=== PATIENT | male | born 1935 | race Caucasian/White ===

== ENCOUNTER 2016-08-07 22:54 | Inpatient (IN) | payer OTHER, BC ==
[~2016-08-07] VITALS: Ht 175.3 cm; Wt 105.2 kg
[~2016-08-07 22:54] MED LIST: LISIPOW; TOPROL
[2016-08-08] VITALS (10 sets, daily range): BP systolic 109–185; BP diastolic 68–107; PULSE 64–84; TEMP 36.6–36.8; O2SAT 82–97; Ht 175.3 cm; Wt 105.2 kg
[2016-08-08] MEDS ORDERED: LSX80 (04:06)
[2016-08-08] MEDS ORDERED: POTA10CA28 PO (04:07)
[2016-08-08] MEDS ORDERED: ZNTT/150 PO (04:07)
[2016-08-08] MEDS ORDERED: SIMV10TA2 PO (04:10)
[2016-08-08] MEDS ORDERED: METO50TA16 PO (04:11)
[2016-08-08] MEDS ORDERED: ISOS120T5 PO (04:12)
[2016-08-08] MEDS ORDERED: TRAM-10 PO (04:12)
[2016-08-08] MEDS ORDERED: FURO80TA63 PO (04:14)
[2016-08-08] MEDS ORDERED: POLYETHYLENE (MIRALAX) 17 GM PACK PO PRN (05:00)
[2016-08-08] MEDS ORDERED: ONDANSETRON INJ 2 MG/ML 2 ML VIAL IV PRN (05:00)
--- NOTE | 2016-08-08 05:09 | History and Physical ---
History & Physical Date & Time of Service: Aug 08, 2016 at 05:09 Chief Complaint: Rt Kidney Stone, Hydronephritis, Thrombocytopenia Primary Care Physician: No Doctor, Assigned History of Present Illness Source: patient 80-year-old male with a past medical history of coronary artery disease, aortic stenosis, hypertension, status post bilateral knee replacement, ITP status post splenectomy presented as a direct admit from [facility] with complaints of right-sided flank pain. The patient complained of right-sided flank pain which started yesterday afternoon and seemed to get progressively worse. He rates the pain as 7/10. Worse on moving. Denies any nausea or vomiting, diarrhea or constipation. Denies any dysuria, increased frequency, hematuria. Denied any fevers with chills. UA done at outside hospital revealed 3+ blood and CT abdomen and pelvis revealed mild right-sided hydronephrosis with proximal right hydroureter with 0.6 x0.4x 0.5 ureteral calculus . Past Medical/Surgical History Coronary artery disease, ITP status post colectomy, bilateral knee arthroplasty , hypertension, bowel obstruction, aortic stenosis Social History Smoking Status: Never Smoker Immunizations History of Influenza Vaccine: Yes History of Tetanus Vaccine?: Yes History of Pneumococcal: HAD REACTION TO VACCINE History of Hepatitis B Vaccine: No Allergies Coded Allergies: Diazepam (Verified Allergy, Mild, RASH, 08/08/16) Home Medications Scheduled Furosemide (Lasix), 1 TAB PO DAILY Isosorbide Mononitrate Ext Rel (Imdur Ext Rel), 120 MG PO DAILY Metoprolol Tartrate (Lopressor) (Lopressor), 1 TAB PO BID Potassium Chloride (Micro-K Ext Rel), 10 MEQ PO DAILY Ranitidine (Zantac), 1 TAB PO BID Simvastatin (Zocor), 1 TAB PO Q2D Scheduled PRN Tramadol (Ultram), 1 TAB PO BID PRN for Pain Review of Systems Constitutional: No fever, No chills Eyes: No worsening of vision ENT: No hearing loss Respiratory: No cough, No sputum, No shortness of breath Cardiovascular: No chest pain Abdomen: + pain (right-sided flank pain), No nausea, No vomiting, No diarrhea, No GI bleeding Musculoskeletal: No joint pain Genitourinary - Male: No hematuria, No dysuria, No urinary frequency Neurologic: No memory loss, No paralysis Psychiatric: No depression symptoms Endocrine: No fatigue Hematologic / Lymphatic: + problem reported (thrombocytopenia) Integumentary: No rash Physical Exam Vital Signs Date Time Temp Pulse Resp B/P (MAP) Pulse Ox O2 Delivery O2 Flow Rate FiO2 08/08/16 04:38 74 136/81 (99) 08/08/16 03:20 Room Air 08/08/16 03:20 36.8 75 16 185/107 95 Room Air General Appearance: WD/WN, + mild distress Head: normocephalic Eyes: normal inspection ENT: normal ENT inspection, hearing grossly normal Neck: supple Respiratory/Chest: chest non-tender, lungs clear, normal breath sounds, no respiratory distress Cardiovascular: regular rate, rhythm, + systolic murmur Abdomen/GI: normal bowel sounds, non tender, soft Back: + right CVA tenderness, + pertinent finding (several Seborrheic keratosis on the back) Extremities/Musculoskelatal: no pedal edema Neurologic/Psych: alert, normal mood/affect, oriented x 3 Skin: normal color Diagnostics Laboratory Results Results Past 24 Hours Test 08/08/16 04:57 Range/Units Diagnostic Radiology CT abdomen and pelvis done at outside hospital: Mild right hydronephrosis and proximal right hydroureter related to 0.6 X o.4 x 0.5 70 proximal ureteral calculus. Also noted a nonobstructing left lower pole renal calculus. Other findings include cystic foci in both kidneys many with characteristics appearing symmetrical and proteinaceous. 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 Bilateral inguinal hernia and very small fat-containing umbilical hernia Impression Assessment and Plan 80-year-old male with a past medical history of coronary artery disease, aortic stenosis, hypertension, status post bilateral knee replacement, ITP status post splenectomy presented as a direct admit from [facility] with complaints of right-sided flank pain. 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 Y/N: Yes Risk Level: Moderate Given or contraindicated: SCD's Resident Tracking Resident Involvement: Resident Care Provided Care Provided: Adult Hospital Medicine Assessment and Plan Attending Addendum: I have physically seen and examined this patient, have directed their medical care, have supervised the medical residents activities, and agree with the H&P as noted above, with the following changes: NONE
[2016-08-08] MEDS ORDERED: HYDROmorphone INJ 1 MG/ML SYR IV PRN (05:15)
[2016-08-08] MEDS ORDERED: MoRPHine SULFATE 4 MG/ML 1 ML CARP\\VIAL IV PRN (05:15)
[2016-08-08] MEDS: TAMSULOSIN HCL 0.4 MG CAP PO STA ×2 (05:23→06:00)
[2016-08-08] MEDS: SODIUM CHLORIDE 0.9% 1000ML 1,000 ML IV SCH ×2 (06:01→15:54)
[2016-08-08 06:55] LABS: HEMATOCRIT 51.1 % (42-52); MEAN CORPUSCULAR HEMOGLOBIN 31.2 pg (25-34); MEAN CORPUSCULAR HGB CONC 32.9 g/dl (32-36); PLATELET COUNT 35 K/uL (130-400); RED BLOOD COUNT 5.38 M/uL (4.7-6.1); WHITE BLOOD COUNT 11.98 K/uL (4.8-10.8)
[2016-08-08 07:05] LABS: BUN/CREATININE RATIO 19.5 (10-20); CALCIUM 8.8 mg/dl (8.5-10.1); CREATININE 0.9 mg/dl (0.60-1.40); POTASSIUM 4.4 mmol/L (3.5-5.1)
--- NOTE | 2016-08-08 07:14 | Urology Consultation ---
History General Date of Service: Aug 08, 2016. Chief Complaint: right flank pain Primary Care Physician: No Doctor, Assigned Pt seen a urologist before?: No History of Present Illness 80 yo male presented transferred from [facility] for a 6mm proximal right ureteral stone found on CT scan. The pt reports developing right flank pain yesterday around 1700. Denies any f/c, n/v, dysuria, or hematuria with the pain. He has no previous hx of stones. He is currently afebrile. White count is 11.98. Cr is 0.90. Imaging Imaging: CT ([facility] showing proximal right ureteral stone) Laboratory Last 24 Hours Test 08/08/16 04:57 08/08/16 06:05 White Blood Count 11.98 K/uL Red Blood Count 5.38 M/uL Hemoglobin 16.8 g/dL Hematocrit 51.1 % Mean Corpuscular Volume 95.0 fL Mean Corpuscular Hemoglobin 31.2 pg Mean Corpuscular Hemoglobin Concent 32.9 g/dl Platelet Count 35 K/uL RDW Standard Deviation 50.3 fL RDW Coefficient of Variation 14.5 % Past History coronary artery disease, hypertension, other (aortic stenosis, ITP s/p colectomy ) Past Surgical History: colectomy, TKR (bilateral ) Family History non-contributory Social History Smoking: non-smoker Occupation status: retired Immunizations History of Influenza Vaccine: Yes History of Tetanus Vaccine?: Yes History of Pneumococcal: HAD REACTION TO VACCINE History of Hepatitis B Vaccine: No Allergies Coded Allergies: No Known Allergies (Verified Allergy, Unknown, 11/14/06) Medications Home Medications: Home Meds and Scripts Medications Dose Route/Sig Max Daily Dose Days Date Category Lasix (Furosemide) 80 Mg Tab 1 Tab PO DAILY 30 08/08/16 Reported Ultram (Tramadol HCl) 50 Mg Tab 1 Tab PO BID PRN 30 08/08/16 Reported Imdur Ext Rel (Isosorbide Mononitrate) 120 Mg Ertab 120 Mg PO DAILY 08/08/16 Reported Lopressor (Metoprolol Tartrate) 50 Mg Tab 1 Tab PO BID 90 08/08/16 Reported Zocor (Simvastatin) 10 Mg Tab 1 Tab PO Q2D 90 08/08/16 Reported Zantac (Ranitidine HCl) 150 Mg Tab 1 Tab PO BID 30 08/08/16 Reported Micro-K Ext Rel (Potassium Chloride) 10 Meq Capcr 10 Meq PO DAILY 08/08/16 Reported Inpatient Medications: Current Inpatient Medications Medications (Trade) Dose Ordered Sig/Brian Route Start Time Stop Time Status Last Admin Dose Admin Polyethylene (Miralax Powder Packet) 17 gm DAILY PRN PO 08/08/16 05:00 09/07/16 04:59 Ondansetron HCl (Zofran Inj) 4 mg Q6H PRN IV 08/08/16 05:00 09/07/16 04:59 Furosemide (Lasix Tab) 80 mg DAILY PO 08/08/16 09:00 09/07/16 08:59 Isosorbide Mononitrate (Imdur Ext Rel Tab) 120 mg DAILY PO 08/08/16 09:00 09/07/16 08:59 Metoprolol Tartrate (Lopressor Tab) 50 mg BID PO 08/08/16 09:00 09/07/16 08:59 Potassium Chloride (Klor-Con M10) 10 meq DAILY PO 08/08/16 09:00 09/07/16 08:59 Ranitidine HCl (zANTac TAB) 150 mg BID PO 08/08/16 09:00 09/07/16 08:59 Simvastatin (Zocor Tab) 10 mg Q2D PO 08/08/16 21:00 09/07/16 20:59 Tramadol HCl (Ultram Tab) 50 mg BID PRN PO 08/08/16 05:00 09/07/16 04:59 Morphine Sulfate (MoRPHine SULFATE INJ) 4 mg Q3H PRN IV 08/08/16 05:15 08/22/16 05:14 Hydromorphone HCl (Dilaudid Inj) 1 mg Q3H PRN IV 08/08/16 05:15 08/22/16 05:14 Ceftriaxone Sodium 1 gm/ Dextrose 50 ml @ 100 mls/hr Q24H IV 08/08/16 09:00 08/18/16 08:59 Tamsulosin HCl (Flomax Cap) 0.4 mg HS PO 08/08/16 21:00 09/07/16 20:59 Sodium Chloride 1,000 ml @ 100 mls/hr Q10H IV 08/08/16 05:45 09/07/16 05:44 08/08/16 06:01 100 MLS/HR Review of Systems Review of Systems Constitutional: No fever, No chills Eyes: No double vision Neurological: No dizzy Endocrine: No excessive thirst Gastrointestinal: + abdominal pain (right flank ), No nausea, No vomiting Cardiovascular: No chest pain Respiratory: No shortness of breath Skin: No rash Musculoskeletal: + back pain (right low back ) Male : No painful urination, No blood in urine Physical Exam Vital Signs: Vital Signs Past 12 Hours Date Time Temp Pulse Resp B/P (MAP) Pulse Ox O2 Delivery O2 Flow Rate FiO2 08/08/16 04:38 74 136/81 (99) 08/08/16 03:20 Room Air 08/08/16 03:20 36.8 75 16 185/107 95 Room Air Physical Exam: General Appearance: no apparent distress Eyes: bilateral eyes normal inspection ENT: hearing grossly normal Neck: no JVD Respiratory/Chest: no respiratory distress, no accessory muscle use Cardiovascular: no JVD Extremities: normal inspection Neurologic/Psychiatric: alert, normal mood/affect, oriented x 3 Skin: normal color Assessment & Plan Assessment & Plan A/P: Proximal right ureteral stone AFVSS. Tx options discussed with the pt today have included a trial of passage with MET vs right ureteral stent placement. The pt prefers a trial of passage today. No evidence of sepsis. Would need urgent stent placement in the event he develops a fever. Recommend supportive management with IVF, Flomax, and pain control. Strain all urine. Will provide a diet today and make him NPO after midnight in the event he needs stent placement tomorrow. Labs and KUB in AM. Thanks for the consult. Will continue to follow along with primary service at this time.
--- NOTE | 2016-08-08 07:30 | Hospitalist Progress Note ---
Hospitalist Progress Note Date of Service Aug 08, 2016. (Mercedes Rust PA-C) Subjective Pt evaluation today including: conversation w/ patient, physical exam, chart review, lab review, review of studies Pain: Moderate, 6/10 PO Intake: Fair Voiding: no voiding problems The patient was seen and examined this morning. Pt reports doing ok, he is still having moderate pain in the right flank/posterior low back region. Pain is improved with pain medication but he is asking for a dose if possible. He is urinating without difficulty. To his knowledge he has not seen any stones as urine was strained. When discussing his platelet count he reports that 35 is actually good for him. He denies abdominal pain, n/v/d/c, cp, sob. Constitutional: No fever, No chills, No sweats, No fatigue Eyes: No discharge, No diplopia ENT: No sore throat, No trouble swallowing Respiratory: No cough, No wheezing, No shortness of breath Cardiovascular: No chest pain, No palpitations Abdomen: No pain, No nausea, No vomiting, No diarrhea, No constipation Musculoskeletal: No joint pain, No muscle pain, No swelling Male : No dysuria, No slowing stream, No hematuria Neurologic: No weakness, No numbness/tingling Skin: No rash, No itch (Mercedes Rust PA-C) Objective Vital Signs Date Time Temp Pulse Resp B/P (MAP) Pulse Ox O2 Delivery O2 Flow Rate FiO2 08/08/16 04:38 74 136/81 (99) 08/08/16 03:20 Room Air 08/08/16 03:20 36.8 75 16 185/107 95 Room Air (Mercedes Rust PA-C) Physical Exam General Appearance: WD/WN, no apparent distress Eyes: PERRL, EOMI ENT: hearing grossly normal, pharynx normal Neck: supple, no JVD Respiratory/Chest: chest non-tender, lungs clear, no respiratory distress, no accessory muscle use Cardiovascular: regular rate, rhythm, no JVD, + systolic murmur (grade III/, heard best at LSB 5th ICS) Abdomen: normal bowel sounds, non tender, soft, + pertinent finding (+ CVA tenderness over R flank) Extremities: non-tender, no pedal edema, no calf tenderness Neurologic/Psychiatric: alert, normal mood/affect, oriented x 3 Skin: + pertinent finding (many seborrheic keratosis overlying entire body, concentrated on back, chest and head. ) (Mercedes Rust, MANNY) Laboratory Results Last 24 Hours Test 08/08/16 04:57 08/08/16 06:05 White Blood Count 11.98 K/uL Red Blood Count 5.38 M/uL Hemoglobin 16.8 g/dL Hematocrit 51.1 % Mean Corpuscular Volume 95.0 fL Mean Corpuscular Hemoglobin 31.2 pg Mean Corpuscular Hemoglobin Concent 32.9 g/dl Platelet Count 35 K/uL RDW Standard Deviation 50.3 fL RDW Coefficient of Variation 14.5 % Sodium Level 144 mmol/L Potassium Level 4.4 mmol/L Chloride Level 108 mmol/L Carbon Dioxide Level 29 mmol/L Anion Gap 7.0 mmol/L Blood Urea Nitrogen 18 mg/dl Creatinine 0.90 mg/dl Est Creatinine Clear Calc Drug Dose 77.0 ml/min Estimated GFR () 92.5 Estimated GFR (Non- 79.8 BUN/Creatinine Ratio 19.5 Random Glucose 96 mg/dl Calcium Level 8.8 mg/dl Total Bilirubin 0.6 mg/dl Aspartate Amino Transf (AST/SGOT) 45 U/L Alanine Aminotransferase (ALT/SGPT) 68 U/L Alkaline Phosphatase 74 U/L Total Protein 7.0 gm/dl Albumin 3.5 gm/dl Globulin 3.5 gm/dl Albumin/Globulin Ratio 1.0 (Mercedes Rust PA-C) Assessment and Plan 80 yo M with PMHx of coronary artery disease, aortic stenosis, hypertension, status post bilateral knee replacement, ITP status post splenectomy presented as a direct admit from [facility] with complaints of right-sided flank pain. UA positive for 3+ blood and CT abdomen and pelvis confirmatory for right-sided hydronephrosis with hydroureter and right-sided ureteral calculus Proximal right-sided ureteral calculus with hydronephrosis: - Confirmed on CT: Ureteral calculus 0.6x 0.4x 0.5 - Continue NSS @ 100mL/hr - Urology consulted: trial of passage with MET vs right ureteral stent placement. Will make NPO at 2400 tonight for stent placement tomorrow - Repeat KUB ordered for this morning - Cr. remains stable at 0.9, WBC is 12K - if febrile or increase WBC would require urgent stent placement. - Ceftriaxone added empirically for potential UTI, will await urine culture - Pain control with morphine, Dilaudid, toradol - Flomax 0.4 mg HS - Strain all urine - may require platelet transfusion prior to stent placement with plt=35 today, will trend labs, he does not follow with heme/onc as an outpt, his family doctor follows this. 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 Discussed with Lyubov Rust PAC and agree with findings and plan as documented in the note. Any exceptions or clarifications are listed here: None pt with chronic thrombocytopenia, did have splenectomy in distant past, does have renal colic and stone will augment low platelet count during procedure 08/09 vitals stable cover antibiotics, urology to perform procedure 08/09 Documented By: Jorge Choi (Jorge Choi M.D.)
[2016-08-08] MEDS: TRAMADOL HCL 50 MG TAB PO PRN (07:38)
[2016-08-08 08:09] LABS: BASO ABS # 0.31 K/uL (0-0.2); BASOPHIL % 2.6 % (0-2); COMPLETE YES; EOSINOPHIL % 0.9 %; GIANT PLATELETS 2+; HOWELL-JOLLY BODIES 1+; LYMPH ABS # 2.31 K/uL (1.2-3.4); LYMPHOCYTE % 19.3 %; NEUTROPHILS % 60.6 %; PLT ESTIMATE SIGNIFIC DECREASED; VARIANT LYM ABS # 1.26 K/uL; VARIANT LYMPHOCYTE % 10.5 %
[2016-08-08] MEDS: METOPROLOL TARTRATE 50 MG TAB PO SCH ×2 (08:33→21:00)
[2016-08-08] MEDS: RANITIDINE HCL 150 MG TAB PO SCH ×2 (08:34→21:00)
[2016-08-08] MEDS: ISOSORBIDE MONONITRATE 60 MG TABCR PO SCH (08:34)
[2016-08-08] MEDS: FUROSEMIDE 80 MG TAB PO SCH (08:34)
[2016-08-08] MEDS: POTASSIUM CHLORIDE 10 MEQ TABCR PO SCH (08:34)
[2016-08-08] MEDS: CEFTRIAXONE SOD INJ 1 GM in DEXTROSE 5% ADD-VANTAGE 50ML 50 ML IV SCH (08:34)
[2016-08-08 08:35] LABS: URINE APPEARANCE CLEAR (CLEAR); URINE BILIRUBIN NEG (NEG); URINE COLOR YELLOW; URINE NITRITE NEG (NEG); URINE PH 5.5 (4.5-7.5); URINE SPECIFIC GRAVITY 1.018 (1.000-1.030); UROBILINOGEN NEG (NEG); ZZUR CULT IF INDIC CLEAN CATCH NO
[2016-08-08 08:39] LABS: MANUAL MICROSCOPIC REQUIRED? NO; REVIEW REQ? NO
[2016-08-08] MEDS: KETOROLAC TROMETHAMINE 15 MG/ML VIAL IV. PRN (15:42)
[2016-08-08] MEDS ORDERED: SIMVASTATIN 10 MG TAB PO SCH (21:00)
[2016-08-08] MEDS: TAMSULOSIN HCL 0.4 MG CAP PO SCH (21:00)
[2016-08-09] VITALS (14 sets, daily range): BP systolic 133–163; BP diastolic 69–94; PULSE 65–81; TEMP 36.6–37.5; O2SAT 91–97
[2016-08-09] MEDS: SODIUM CHLORIDE 0.9% 1000ML 1,000 ML IV SCH ×3 (01:20→21:43)
[2016-08-09] MEDS ORDERED: CIPROFLOXACIN / D5W 400 MG IV SCH (06:00)
[2016-08-09] MEDS ORDERED: CIPROFLOXACIN 200MG / D5W IV SCH (06:00)
[2016-08-09 07:09] LABS: BUN/CREATININE RATIO 21.9 (10-20); CREATININE 0.72 mg/dl (0.60-1.40); POTASSIUM 3.9 mmol/L (3.5-5.1)
[2016-08-09 07:11] LABS: HEMATOCRIT 46.6 % (42-52); MEAN CELL VOLUME 96.1 fL (80-100); MEAN CORPUSCULAR HEMOGLOBIN 33.2 pg (25-34); MEAN CORPUSCULAR HGB CONC 34.5 g/dl (32-36); MEAN PLATELET VOLUME 13.4 fL (7.4-10.4); PLATELET COUNT 42 K/uL (130-400); RED BLOOD COUNT 4.85 M/uL (4.7-6.1); WHITE BLOOD COUNT 9.55 K/uL (4.8-10.8)
[2016-08-09 07:13] LABS: BASO % 0.3 %; BASO ABS # 0.03 K/uL (0-0.2); COMPLETE YES; EOS % 4.7 %; GIANT PLATELETS 2+; HOWELL-JOLLY BODIES 1+; IG% 0.2 %; LYMPH % 32.7 %; LYMPH ABS # 3.12 K/uL (1.2-3.4); MONO % 12.9 %; NEUT % 49.2 %; PLT ESTIMATE DECREASED
[2016-08-09 07:15] LABS: CALCIUM 8.7 mg/dl (8.5-10.1)
[2016-08-09] MEDS: KETOROLAC TROMETHAMINE 15 MG/ML VIAL IV. PRN (07:27)
--- NOTE | 2016-08-09 08:06 | Progress Note ---
Subjective Date of Service: Aug 09, 2016. Subjective Pt evaluation today including: conversation w/ patient, chart review, lab review Voiding: no voiding problems 80 yo male with right ureteral stone. Pt c/o right flank pain 9-10 this morning. Denies n/v. Denies dysuria or hematuria. Remains afebrile. White count has normalized. Cr remains normal. He did have a KUB this AM. The stone appears visible. Review of Systems Constitutional: No fever, No chills Respiratory: No shortness of breath Cardiac: No chest pain Abdomen: + see HPI, + pain (right flank), No nausea, No vomiting Male : No dysuria, No hematuria Heme: No abnormal bleeding/bruising Objective Vital Signs Date Time Temp Pulse Resp B/P (MAP) Pulse Ox O2 Delivery O2 Flow Rate FiO2 08/09/16 07:40 91 Nasal Cannula 2.0 08/09/16 07:37 37.0 74 20 91 Nasal Cannula 2.0 08/08/16 23:35 Room Air 08/08/16 23:13 36.6 77 18 160/79 (106) 97 Nasal Cannula 2.0 08/08/16 21:00 64 147/77 (100) 08/08/16 15:40 Nasal Cannula 2.0 08/08/16 15:16 36.6 66 18 109/68 (82) 95 Nasal Cannula 2.0 08/08/16 10:07 92 Nasal Cannula 2.0 08/08/16 10:05 78 112/70 (84) 82 Room Air Physical Exam General Appearance: no apparent distress Eyes: normal inspection ENT: hearing grossly normal Neck: no JVD Respiratory/Chest: no respiratory distress, no accessory muscle use Cardiovascular: no JVD Extremities: normal inspection Neurologic/Psychiatric: alert, normal mood/affect, oriented x 3 Skin: normal color Laboratory Results Last 24 Hours Test 08/08/16 12:09 08/09/16 06:10 Bedside Glucose 121 mg/dl White Blood Count 9.55 K/uL Red Blood Count 4.85 M/uL Hemoglobin 16.1 g/dL Hematocrit 46.6 % Mean Corpuscular Volume 96.1 fL Mean Corpuscular Hemoglobin 33.2 pg Mean Corpuscular Hemoglobin Concent 34.5 g/dl Platelet Count 42 K/uL Mean Platelet Volume 13.4 fL Neutrophils (%) (Auto) 49.2 % Lymphocytes (%) (Auto) 32.7 % Monocytes (%) (Auto) 12.9 % Eosinophils (%) (Auto) 4.7 % Basophils (%) (Auto) 0.3 % Neutrophils # (Auto) 4.70 K/uL Lymphocytes # (Auto) 3.12 K/uL Monocytes # (Auto) 1.23 K/uL Eosinophils # (Auto) 0.45 K/uL Basophils # (Auto) 0.03 K/uL RDW Standard Deviation 51.7 fL RDW Coefficient of Variation 14.6 % Immature Granulocyte % (Auto) 0.2 % Immature Granulocyte # (Auto) 0.02 K/uL Platelet Estimate DECREASED Giant Platelets 2+ [place] Bodies 1+ Sodium Level 144 mmol/L Potassium Level 3.9 mmol/L Chloride Level 107 mmol/L Carbon Dioxide Level 28 mmol/L Anion Gap 9.0 mmol/L Blood Urea Nitrogen 16 mg/dl Creatinine 0.72 mg/dl Est Creatinine Clear Calc Drug Dose 96.2 ml/min Estimated GFR () 101.4 Estimated GFR (Non- 87.5 BUN/Creatinine Ratio 21.9 Random Glucose 95 mg/dl Calcium Level 8.7 mg/dl Assessment and Plan A/P: Right ureteral stone AFVSS. Pt with persistent right renal colic. Will leave him NPO today for potential cysto and right ureteral stent placement today vs tomorrow pending OR logistics. He is to receive platelet transfusion intra-op if he goes to the OR. Will continue to follow along with primary service. Continued [facility] stay due to: inadequate oral pain control
--- NOTE | 2016-08-09 08:10 | DIAGNOSTIC IMAGING REPORT ---
KUB HISTORY: right ureteral stone COMPARISON: Outside hospital abdomen and pelvis CT 08/07/2016. FINDINGS: The bowel gas pattern is unremarkable. There are no dilated loops of small bowel to suggest an obstruction. Stable round calcification within the left upper quadrant. Surgical clips within the right upper quadrant from prior cholecystectomy. There is a 5 mm stone within the lower pole of the left kidney. No right renal calculi. No significant change in position of the 6 mm stone within the mid right ureter. This is adjacent to the right L4 transverse process. Calcifications in the deep pelvis are consistent with phleboliths. No pneumoperitoneum or pneumatosis. IMPRESSION: 1. No change in the 6 mm mid right ureteral stone. 2. Stable left-sided nephrolithiasis. Electronically signed by: Toan Escudero M.D. 08/09/2016 8:09 AM Dictated Date/Time: 08/09/2016 8:07 AM
[2016-08-09] MEDS: METOPROLOL TARTRATE 50 MG TAB PO SCH ×2 (08:31→20:40)
[2016-08-09] MEDS: CEFTRIAXONE SOD INJ 1 GM in DEXTROSE 5% ADD-VANTAGE 50ML 50 ML IV SCH (08:31)
--- NOTE | 2016-08-09 08:31 | Hospitalist Progress Note ---
Hospitalist Progress Note Date of Service Aug 09, 2016. (Mercedes Rust PA-C) Subjective Pt evaluation today including: conversation w/ patient, physical exam, chart review, lab review, review of studies Pain: Moderate PO Intake: NPO Voiding: no voiding problems The patient was seen and examined this morning. Pt reports his pain is essentially unchanged from yesterday, R flank and R lower back, despite having pain meds on board. He received toradol this morning but by the time I saw him it was already wearing off, which was about 2 hrs. He is hoping for stent placement today but was told by urology it possibly may be postponed until tomorrow due to OR timing. He was nauseous and dry heaving yesterday from pain and possibly dilaudid, as it occurred right after getting 1mg. He has experienced nausea or vomiting since then. He denies headache, fever, sweats or chills. Constitutional: No fever, No chills, No sweats Respiratory: No cough, No dyspnea at rest Cardiovascular: No chest pain, No palpitations Abdomen: + problem reported (See HPI) Musculoskeletal: No joint pain, No muscle pain, No swelling Endo: No fatigue Skin: No rash, No itch (Mercedes Rust PA-C) Objective Vital Signs Date Time Temp Pulse Resp B/P (MAP) Pulse Ox O2 Delivery O2 Flow Rate FiO2 08/09/16 08:13 146/76 (99) 08/09/16 07:40 91 Nasal Cannula 2.0 08/09/16 07:37 37.0 74 20 91 Nasal Cannula 2.0 08/08/16 23:35 Room Air 08/08/16 23:13 36.6 77 18 160/79 (106) 97 Nasal Cannula 2.0 08/08/16 21:00 64 147/77 (100) 08/08/16 15:40 Nasal Cannula 2.0 08/08/16 15:16 36.6 66 18 109/68 (82) 95 Nasal Cannula 2.0 08/08/16 10:07 92 Nasal Cannula 2.0 08/08/16 10:05 78 112/70 (84) 82 Room Air (Mercedes Rust PA-C) Physical Exam Notes: General Appearance: WD/WN, no apparent distress Eyes: PERRL, EOMI ENT: hearing grossly normal, pharynx normal Neck: supple, no JVD Respiratory/Chest: chest non-tender, lungs clear, no respiratory distress, no accessory muscle use Cardiovascular: regular rate, rhythm, no JVD, + systolic murmur (grade III/, heard best at LSB 5th ICS) Abdomen: normal bowel sounds, non tender, soft, + pertinent finding (+ CVA tenderness over R flank and R lower back) Extremities: non-tender, no pedal edema, no calf tenderness Neurologic/Psychiatric: alert, normal mood/affect, oriented x 3 Skin: + pertinent finding (many seborrheic keratosis overlying entire body, concentrated on back, chest and head. ) (Mercedes Rust, MANNY) Laboratory Results Last 24 Hours Test 08/08/16 12:09 08/09/16 06:10 Bedside Glucose 121 mg/dl White Blood Count 9.55 K/uL Red Blood Count 4.85 M/uL Hemoglobin 16.1 g/dL Hematocrit 46.6 % Mean Corpuscular Volume 96.1 fL Mean Corpuscular Hemoglobin 33.2 pg Mean Corpuscular Hemoglobin Concent 34.5 g/dl Platelet Count 42 K/uL Mean Platelet Volume 13.4 fL Neutrophils (%) (Auto) 49.2 % Lymphocytes (%) (Auto) 32.7 % Monocytes (%) (Auto) 12.9 % Eosinophils (%) (Auto) 4.7 % Basophils (%) (Auto) 0.3 % Neutrophils # (Auto) 4.70 K/uL Lymphocytes # (Auto) 3.12 K/uL Monocytes # (Auto) 1.23 K/uL Eosinophils # (Auto) 0.45 K/uL Basophils # (Auto) 0.03 K/uL RDW Standard Deviation 51.7 fL RDW Coefficient of Variation 14.6 % Immature Granulocyte % (Auto) 0.2 % Immature Granulocyte # (Auto) 0.02 K/uL Platelet Estimate DECREASED Giant Platelets 2+ Khan-[place] Bodies 1+ Sodium Level 144 mmol/L Potassium Level 3.9 mmol/L Chloride Level 107 mmol/L Carbon Dioxide Level 28 mmol/L Anion Gap 9.0 mmol/L Blood Urea Nitrogen 16 mg/dl Creatinine 0.72 mg/dl Est Creatinine Clear Calc Drug Dose 96.2 ml/min Estimated GFR () 101.4 Estimated GFR (Non- 87.5 BUN/Creatinine Ratio 21.9 Random Glucose 95 mg/dl Calcium Level 8.7 mg/dl (Mercedes Rust PA-C) Assessment and Plan 80 yo M with PMHx of coronary artery disease, aortic stenosis, hypertension, status post bilateral knee replacement, ITP status post splenectomy presented as a direct admit from [facility] with complaints of right-sided flank pain. UA positive for 3+ blood and CT abdomen and pelvis confirmatory for right-sided hydronephrosis with hydroureter and right-sided ureteral calculus Proximal right-sided ureteral calculus with hydronephrosis: - Confirmed on CT: Ureteral calculus 0.6x 0.4x 0.5 - Continue NSS @ 100mL/hr - Urology consulted: planned to keep pt NPO today for stent placement today with Dr. Elkins, will occur later this evening due to OR timing and urology being in clinic - Repeat KUB: IMPRESSION: 1. No change in the 6 mm mid right ureteral stone. 2. Stable left-sided nephrolithiasis. - Cr. remains stable at 0.72, WBC is 9.55 and trending downward - Ceftriaxone on preoperatively for stent placement as urine culture was cancelled due to clean UA. (day 2) - Pain control with morphine and toradol - will reduce dilaudid dosing due to nausea and vomitting yesterday - Flomax 0.4 mg HS - Strain all urine - Will plan for platelet transfusion intraoperatively today with plt=42 today, will trend labs, he does not follow with heme/onc as an outpt, his family doctor follows this. 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 Elkins (Mercedes Rust PA-C) GARRICK Physician Supervision Note: I interviewed and examined the patient. Discussed with Lyubov Rust PAC and agree with findings and plan as documented in the note. Any exceptions or clarifications are listed here: None pt with chronic thrombocytopenia, did have splenectomy in distant past, does have renal colic and stone did augment low platelet count during procedure 08/09 vitals stable cover antibiotics, urology placed stent 08/09, slight hematuria pain controlled Documented By: Jorge Choi (Jorge Choi M.D.)
[2016-08-09] MEDS: RANITIDINE HCL 150 MG TAB PO SCH ×2 (08:32→20:39)
--- NOTE | 2016-08-09 10:44 | DIAGNOSTIC IMAGING REPORT ---
CHEST 2 VIEWS ROUTINE CLINICAL HISTORY: Preoperative evaluation. COMPARISON STUDY: Chest radiograph November 18, 2016. FINDINGS: There is no pneumothorax. No pleural effusion is identified. Diffuse interstitial thickening is noted with Chilo B lines. The heart is moderately enlarged. There is no consolidation to suggest pneumonia. There is a 1 cm nodular opacity within left mid to upper lung. IMPRESSION: 1. Moderate interstitial pulmonary edema. 2. Moderate cardiomegaly. 3. 1 cm nodular opacity within the left mid to upper lung. This is probably artifactual and may represent a pulmonary vessel. However, PA and shallow obliques radiographs of the chest in one month are recommended to exclude a pulmonary nodule. Electronically signed by: Simon Woods M.D. 08/09/2016 10:43 AM Dictated Date/Time: 08/09/2016 10:38 AM
[2016-08-09] MEDS: TRAMADOL HCL 50 MG TAB PO PRN ×2 (10:46→15:23)
[2016-08-09] MEDS: ISOSORBIDE MONONITRATE 60 MG TABCR PO SCH (10:52)
[2016-08-09] MEDS: FUROSEMIDE 80 MG TAB PO SCH (10:52)
[2016-08-09] MEDS: POTASSIUM CHLORIDE 10 MEQ TABCR PO SCH (10:52)
[2016-08-09] MEDS ORDERED: CIPROFLOXACIN 400MG / 200ML D5W IV ONE (16:30)
[2016-08-09] MEDS ORDERED: ONDANSETRON INJ 2 MG/ML 2 ML VIAL IV PRN (17:00)
[2016-08-09] MEDS ORDERED: ATROPINE SULFATE 0.1 MG/ML 5ML SYR IV PRN (17:00)
[2016-08-09] MEDS ORDERED: FENTANYL CITRATE INJ 50 MCG/1 ML 2 ML VIAL IV PRN (17:00)
[2016-08-09] MEDS ORDERED: EpHEDrine SULFATE INJ 50 MG/ML AMP IV PRN (17:00)
[2016-08-09] MEDS ORDERED: KETAMINE HCL INJ 50 MG/ML 10 ML VIAL ONE (17:41)
[2016-08-09] MEDS ORDERED: CONRAY 30% 150ML BOTTLE ONE (18:11)
[2016-08-09] MEDS ORDERED: LIDOCAINE HCL 2% 2 ML VIAL (20MG/ML) ONE (18:19)
[2016-08-09] MEDS ORDERED: PROPOFOL IV EMULSION 10 MG/ML 20 ML VIAL IV ONE (18:19)
[2016-08-09] MEDS ORDERED: SODIUM CHLORIDE 0.9% INJ 10 ML VIAL ONE (18:23)
--- NOTE | 2016-08-09 18:23 | [facility] Post Operative Brief Note ---
Immediate Operative Summary Operative Date Aug 09, 2016. Pre-Operative Diagnosis R midureteral stone with intractable colic Post-Operative Diagnosis Same Procedure(s) Performed Cystoscopy, right retrograde pyelography, right ureteral stent placement Surgeon Claudia Elkins MD Workgroup Leader Surgeon(s) NA Estimated Blood Loss Min Findings Good stent position on fluoro Specimens NA Drains 6 fr R multilength stent Anesthesia MAC Complication(s) None Disposition Recovery Room / PACU
[2016-08-09] MEDS ORDERED: LABETALOL HCL IV 5 MG/ML 20ML IV ONE (18:38)
--- NOTE | 2016-08-09 18:42 | DIAGNOSTIC IMAGING REPORT ---
Retrograde RETROGRADE INCLUDES KUB CLINICAL HISTORY: RIGHT STENT AND LASER laser lithotripsy TECHNIQUE: Image intensifier COMPARISON STUDY: None FINDINGS: Findings of a placement of a right ureteral stent. Images were used for intraoperative surgical planning purposes IMPRESSION: Image intensifier usage for a right ureteral stent/lithotripsy intraoperative purposes Electronically signed by: Satnam Ibarra M.D. 08/09/2016 6:41 PM Dictated Date/Time: 08/09/2016 6:40 PM
[2016-08-09] MEDS ORDERED: NURSING VERBAL MED ORDER ONE (18:45)
[2016-08-09] MEDS ORDERED: LABETALOL HCL IV 5 MG/ML 20ML IV PRN (19:00)
--- NOTE | 2016-08-09 19:02 | Anesthesiology Progress Note ---
Anesthesia Post Op Note Date & Time Aug 09, 2016 at 19:02 Vital Signs Pain Intensity: 0 Vital Signs Past 12 Hours Date Time Temp Pulse Resp B/P (MAP) Pulse Ox O2 Delivery O2 Flow Rate FiO2 08/09/16 18:52 77 26 94 08/09/16 18:52 77 26 08/09/16 18:51 146/98 08/09/16 18:47 75 23 94 08/09/16 18:47 76 23 08/09/16 18:46 76 18 08/09/16 18:46 79 18 154/87 95 08/09/16 18:45 172/88 08/09/16 18:41 80 24 189/95 98 08/09/16 18:41 74 24 08/09/16 18:36 74 13 08/09/16 18:36 73 13 179/96 98 08/09/16 18:35 176/92 08/09/16 18:31 74 14 08/09/16 18:31 74 14 178/116 98 08/09/16 18:27 174/103 08/09/16 18:26 37.0 73 16 174/103 97 Mask 10 08/09/16 17:40 36.6 68 16 137/87 97 7.0 08/09/16 17:35 36.7 68 16 133/85 92 08/09/16 17:28 36.7 68 16 133/85 (101) 92 Room Air 08/09/16 15:25 Nasal Cannula 2.0 08/09/16 15:20 36.8 65 16 162/81 (108) 92 Nasal Cannula 2.0 08/09/16 10:51 73 163/94 (117) 08/09/16 08:13 146/76 (99) 08/09/16 07:40 Nasal Cannula 2.0 08/09/16 07:40 91 Nasal Cannula 2.0 08/09/16 07:37 37.0 74 20 91 Nasal Cannula 2.0 Notes Mental Status: alert / awake / arousable, participated in evaluation Pt Amnestic to Procedure: Yes Nausea / Vomiting: adequately controlled Pain: adequately controlled Airway Patency, RR, SpO2: stable & adequate BP & HR: stable & adequate Hydration State: stable & adequate Anesthetic Complications: no major complications apparent
[2016-08-09] MEDS: HYDROmorphone INJ 1 MG/ML SYR IV PRN (20:37)
--- NOTE | 2016-08-09 20:37 | OPERATIVE REPORT ---
DATE OF OPERATION: 08/09/2016 PREOPERATIVE DIAGNOSIS: Right upper ureteral stone with intractable renal colic. POSTOPERATIVE DIAGNOSIS: Same. PROCEDURE: Cystoscopy, right retrograde pyelography, right ureteral stent placement. SURGEON: Dr. Reji Elkins. SHOOTER HELPER: None. ANESTHESIA: Monitored anesthesia care with sedation. COMPLICATIONS: None. FINDINGS: Good stent position after completion of case, moderate or mild BPH. DRAINS LEFT IN PLACE: Include, a 6-Citizen [place] multilength right ureteral stent. SPECIMENS SENT TO PATHOLOGY: None. COMPLICATIONS: None. ESTIMATED BLOOD LOSS: Minimal. BRIEF HISTORY: Mr. Winchester is an 80-year-old male, who is admitted with his first stone episode associated with intractable right renal colic. He has been seen by our service. Please see H&P for further details. After discussion of the risks and benefits and various forms of intervention, he has decided upon acute renal decompression with ureteral stent placement to manage this disease. He is receiving irradiated platelets due to a low platelet count. Intravenous ciprofloxacin was provided for antibiotic coverage. PROCEDURE: The patient was properly identified and brought into the operative suite. After identification of appropriate consent on the chart, monitored anesthesia care with sedation was initiated. And the patient was prepped and draped in standard fashion for this procedure. time study technologist-out procedure was followed. A 22-Citizen [place] rigid cystoscope was passed into the bladder under direct visualization. The patient was noted to have some mild prostatic enlargement with a somewhat engorged and vascular prostate gland. This was noted to have some mild to moderate amount of bleeding over the course of the case. The ureteral orifices were noted in the normal anatomic location bilaterally with a grade 2 trabeculated bladder. Attention was turned to the right ureteral orifice, which was cannulated using an open-ended catheter. Angled sensor tip wire was advanced and navigated up to the level of the right renal pelvis. Open ended catheter was advanced over this and retrograde pyelography was performed. This demonstrated a full and somewhat tortuous ureter with some twists and turns. The stone was not clearly visible on retrograde today, although was easily seen on KUB imaging. A wire was placed up to the level of the renal pelvis followed by a 6-[place]izen [place] multilength ureteral stent. A full coil was visualized within the upper pole and a double coil directly visualized within the bladder. Hydronephrotic drip was noted and bladder was drained and cystoscope was removed, anesthesia was reversed. The patient was transferred to recovery room in stable condition. FOLLOWUP CARE: The patient will be readmitted to the floor for management by the primary service. His diet may be advanced. We will arrange for outpatient followup for definitive management of his stone. Care was discussed with patient's today postoperatively per his request. I attest to the content of the Intraoperative Record and any orders documented therein. Any exception s are noted below.
[2016-08-09] MEDS: TAMSULOSIN HCL 0.4 MG CAP PO SCH (20:39)
[2016-08-10 03:42] VITALS: BP 152/83; PULSE 82; TEMP 37.2; O2SAT 94
[2016-08-10] MEDS: HYDROmorphone INJ 1 MG/ML SYR IV PRN (03:48)
[2016-08-10 06:44] LABS: MEAN CORPUSCULAR HGB CONC 32.8 g/dl (32-36)
[2016-08-10 07:03] LABS: HEMATOCRIT 49.7 % (42-52); MEAN CELL VOLUME 95.4 fL (80-100); MEAN CORPUSCULAR HEMOGLOBIN 31.3 pg (25-34); RED BLOOD COUNT 5.21 M/uL (4.7-6.1); WHITE BLOOD COUNT 11.95 K/uL (4.8-10.8)
[2016-08-10 07:18] LABS: PLATELET COUNT 36 K/uL (130-400)
[2016-08-10 07:19] LABS: BASO % 0.3 %; BASO ABS # 0.03 K/uL (0-0.2); COMPLETE YES; EOS % 2.3 %; HOWELL-JOLLY BODIES 1+; IG% 0.1 %; LARGE PLATELETS 1+; LYMPH % 17.8 %; LYMPH ABS # 2.13 K/uL (1.2-3.4); MONO % 9.9 %; NEUT % 69.6 %; PLT ESTIMATE DECREASED
--- NOTE | 2016-08-10 07:52 | Anesthesiology Progress Note ---
Anesthesia Post Op Note Date & Time Aug 10, 2016 at 07:52 Vital Signs Pain Intensity: 5.0 Vital Signs Past 12 Hours Date Time Temp Pulse Resp B/P (MAP) Pulse Ox O2 Delivery O2 Flow Rate FiO2 08/10/16 03:42 37.2 82 18 152/83 (106) 94 Nasal Cannula 2.0 08/09/16 23:45 Nasal Cannula 2.0 08/09/16 22:55 37.1 81 18 156/81 (106) 97 Nasal Cannula 2.0 08/09/16 22:25 37.5 75 20 147/79 (101) 97 Nasal Cannula 2.0 08/09/16 21:20 36.9 79 18 155/80 (105) 95 Nasal Cannula 2.0 08/09/16 20:20 36.9 75 18 150/69 (96) 91 Nasal Cannula 2.0 Notes Mental Status: alert / awake / arousable, participated in evaluation Pt Amnestic to Procedure: Yes Nausea / Vomiting: adequately controlled Pain: adequately controlled Airway Patency, RR, SpO2: stable & adequate BP & HR: stable & adequate Hydration State: stable & adequate Anesthetic Complications: no major complications apparent
[2016-08-10 07:55] VITALS: BP 162/90; PULSE 86; TEMP 37; O2SAT 93
[2016-08-10 07:59] VITALS: O2SAT 93
[2016-08-10] MEDS ORDERED: NURSING VERBAL MED ORDER ONE (08:15)
[2016-08-10] MEDS ORDERED: PHENAZOPYRIDINE HCL 200 MG TAB PO PRN (08:30)
--- NOTE | 2016-08-10 08:39 | Progress Note ---
Subjective Date of Service: Aug 10, 2016. Subjective Pt evaluation today including: conversation w/ patient, chart review, lab review 80 yo male s/p right ureteral stent placement for right ureteral stone. Pt reports some dysuria, gross hematuria, and urgency this morning. He also c/o shaking this morning, but says he is not cold and otherwise feels well. Denies other pain or n/v. Review of Systems Constitutional: No fever, No chills Respiratory: No shortness of breath Cardiac: No chest pain Abdomen: No pain, No nausea, No vomiting Male : + dysuria, + urinary frequency, + hematuria Heme: No abnormal bleeding/bruising Objective Vital Signs Date Time Temp Pulse Resp B/P (MAP) Pulse Ox O2 Delivery O2 Flow Rate FiO2 08/10/16 07:59 93 Room Air 08/10/16 07:55 37.0 86 20 162/90 (114) 93 08/10/16 03:42 37.2 82 18 152/83 (106) 94 Nasal Cannula 2.0 08/09/16 23:45 Nasal Cannula 2.0 08/09/16 22:55 37.1 81 18 156/81 (106) 97 Nasal Cannula 2.0 08/09/16 22:25 37.5 75 20 147/79 (101) 97 Nasal Cannula 2.0 08/09/16 21:20 36.9 79 18 155/80 (105) 95 Nasal Cannula 2.0 08/09/16 20:20 36.9 75 18 150/69 (96) 91 Nasal Cannula 2.0 08/09/16 19:50 36.9 80 18 151/80 (103) 92 Nasal Cannula 2.0 08/09/16 19:29 94 Nasal Cannula 2.0 08/09/16 19:25 36.8 74 20 161/93 (115) 94 Nasal Cannula 2.0 08/09/16 19:14 72 18 08/09/16 19:14 74 18 95 08/09/16 19:09 73 19 08/09/16 19:09 74 19 155/94 95 08/09/16 19:08 73 19 08/09/16 19:08 74 19 92 08/09/16 19:03 73 28 08/09/16 19:03 73 28 95 08/09/16 19:01 157/97 08/09/16 19:00 36.7 08/09/16 18:58 75 19 08/09/16 18:58 75 19 95 08/09/16 18:57 176/93 08/09/16 18:56 164/119 08/09/16 18:53 75 18 08/09/16 18:53 73 18 93 08/09/16 18:52 77 26 94 08/09/16 18:52 77 26 08/09/16 18:51 146/98 08/09/16 18:47 75 23 94 08/09/16 18:47 76 23 08/09/16 18:46 76 18 08/09/16 18:46 79 18 154/87 95 08/09/16 18:45 172/88 08/09/16 18:41 80 24 189/95 98 08/09/16 18:41 74 24 08/09/16 18:36 74 13 08/09/16 18:36 73 13 179/96 98 08/09/16 18:35 176/92 08/09/16 18:31 74 14 08/09/16 18:31 74 14 178/116 98 08/09/16 18:27 174/103 08/09/16 18:26 37.0 73 16 174/103 97 Mask 10 08/09/16 17:40 36.6 68 16 137/87 97 7.0 08/09/16 17:35 36.7 68 16 133/85 92 08/09/16 17:28 36.7 68 16 133/85 (101) 92 Room Air 08/09/16 15:25 Nasal Cannula 2.0 08/09/16 15:20 36.8 65 16 162/81 (108) 92 Nasal Cannula 2.0 08/09/16 10:51 73 163/94 (117) Physical Exam General Appearance: no apparent distress Eyes: normal inspection ENT: hearing grossly normal Neck: no JVD Respiratory/Chest: no respiratory distress, no accessory muscle use Cardiovascular: no JVD Extremities: normal inspection Neurologic/Psychiatric: alert, normal mood/affect, oriented x 3 Skin: normal color Laboratory Results Last 24 Hours Test 08/10/16 06:31 White Blood Count 11.95 K/uL Red Blood Count 5.21 M/uL Hemoglobin 16.3 g/dL Hematocrit 49.7 % Mean Corpuscular Volume 95.4 fL Mean Corpuscular Hemoglobin 31.3 pg Mean Corpuscular Hemoglobin Concent 32.8 g/dl Platelet Count 36 K/uL Neutrophils (%) (Auto) 69.6 % Lymphocytes (%) (Auto) 17.8 % Monocytes (%) (Auto) 9.9 % Eosinophils (%) (Auto) 2.3 % Basophils (%) (Auto) 0.3 % Neutrophils # (Auto) 8.33 K/uL Lymphocytes # (Auto) 2.13 K/uL Monocytes # (Auto) 1.18 K/uL Eosinophils # (Auto) 0.27 K/uL Basophils # (Auto) 0.03 K/uL RDW Standard Deviation 49.4 fL RDW Coefficient of Variation 14.1 % Immature Granulocyte % (Auto) 0.1 % Immature Granulocyte # (Auto) 0.01 K/uL Platelet Estimate DECREASED Large Platelets 1+ Khan-[place] Bodies 1+ Assessment and Plan POD #1 s/p right ureteral stent placement for right ureteral stone AFVSS. Pain improved today. Discussed with the pt that urgency, hematuria, dysuria, and back discomfort area all common after stent placement. Should start improving over the next several days. Recommend he increase fluids and continue Flomax for stent irritation. Will also add Pyridium. Pt OK for d/c home from [facility] when OK with primary service. Recommend d /c home on Pyridium, Flomax, Colace, oral pain medication, and 5 days of Cipro. Will arrange for outpatient f/u with Dr. Elkins early next week to discuss possible ESWL next week. Avoid any NSAIDs or other anticoagulants while inpatient and over the next week so as to not push further delay of ESWL. Thanks for allowing us to participate in this pt's care. Discharge planning: home
[2016-08-10] MEDS: POTASSIUM CHLORIDE 10 MEQ TABCR PO SCH (08:47)
[2016-08-10] MEDS: METOPROLOL TARTRATE 50 MG TAB PO SCH (08:48)
[2016-08-10] MEDS: FUROSEMIDE 80 MG TAB PO SCH (08:48)
[2016-08-10] MEDS: RANITIDINE HCL 150 MG TAB PO SCH (08:48)
[2016-08-10] MEDS: ISOSORBIDE MONONITRATE 60 MG TABCR PO SCH (08:48)
[2016-08-10] MEDS: CEFTRIAXONE SOD INJ 1 GM in DEXTROSE 5% ADD-VANTAGE 50ML 50 ML IV SCH (09:14)
[2016-08-10] MEDS ORDERED: FLM4 PO (09:55)
[2016-08-10] MEDS ORDERED: ONDA4TAB10 SL (09:55)
[2016-08-10] MEDS ORDERED: PHEN-1043 PO (09:55)
[2016-08-10] MEDS ORDERED: PHEN-775 PO (09:55)
[2016-08-10] MEDS ORDERED: CIPR-255 PO (09:55)
[2016-08-10 11:12] VITALS: BP 162/90; PULSE 86; TEMP 37; O2SAT 93
[2016-08-10 11:49] VITALS: BP 130/72; PULSE 70; TEMP 37.2; O2SAT 90
--- NOTE | 2016-08-10 13:25 | Discharge Instructions ---
Discharge Instructions Date of Service Aug 10, 2016. Admission Reason for Admission: Rt Kidney Stone, Hydronephritis, Thrombocytopenia Discharge Discharge Diagnosis / Problem: Proximal right-sided ureteral calculus with hydronephrosis Discharge Goals Goal(s): Decrease discomfort, Improve function, Increase independence, Improve disease control Activity Recommendations Activity Limitations: resume your previous activity Lifting Limitations: no more than 10 pounds Exercise/Sports Limitations: rest today, gradually increase as tolerated May Resume Sexual Activity: after follow-up appointment Shower/Bathe: no limitations Driving or Machine Use: no limitations . Instructions / Follow-Up Instructions / Follow-Up You were admitted to [facility] with Proximal right-sided ureteral calculus with hydronephrosis - During your stay here you were treated with iv antibiotics, pain control with IV medication, fluids, and underwent a ureteral stent placement by urology on . - You will need to be seen by urology in the clinic within 1.5-2 weeks to schedule an outpatient lithotripsy procedure. T - Your stent will be removed after lithotripsy. Please continue taking all other medications as prescribed. Please continue taking the antibiotic of Cipro 500 mg twice daily - Continue pyridium for pain three times daily for only 3 days. This medication may turn your urine, sweat and tears orange. - Continue taking tramadol for pain as directed. Follow up: Follow up with your Primary Care Provider within 1 week. Follow up with Urology within 1.5-2 week. Current Hospital Diet Patient's current hospital diet: AHA Diet (Heart Healthy) Discharge Diet Recommended Diet: AHA Diet (Heart Healthy) Procedures Procedures Performed: Cystoscopy Right Ureteroscopy, Right Retrograde, Right Ureteral Stent Placement Pending Studies Studies pending at discharge: no Medical Emergencies . Who to Call and When: Medical Emergencies: If at any time you feel your situation is an emergency, please call 911 immediately. . Non-Emergent Contact Non-Emergency issues call your: Primary Care Provider, Urologist Call Non-Emergent contact if: you have a fever, temperature is above 100.5, your pain is not controlled, your pain is worsening, your pain is unusual for you, your pain is concerning you, you have any medication questions . Past History Medical & Surgical History: (1) Ureteral calculi . "Provider Documentation" section prepared by Lyubov Rust. . VTE Core Measure Inpt VTE Proph given/why not?: Arcelia Juarez, SCD's
--- NOTE | 2016-08-10 13:59 | Hospitalist Progress Note ---
Hospitalist Progress Note Date of Service Aug 10, 2016. (Mercedes Rust PA-C) Subjective Pt evaluation today including: conversation w/ patient, physical exam, chart review, lab review, review of studies Pain: Moderate PO Intake: Good The patient was seen and examined this morning. Pt reports his pain is a little better today compared to yesterday, in his right flank/CVA. He is urinating dark red urine, and has missed the urinal twice this morning due to due to feeling like he needs to urinate coming on so quickly. Stent placement went well yesterday. He will anticipate seeing urology early next week to schedule lithotripsy. He denies any other acute complaints. Additional Comments: Constitutional: No fever, sweats or chills Eyes: No diplopia, no worsening or blurred vision ENT: normal hearing, no trouble swallowing Respiratory: No cough, sputum, dyspnea at rest or on exertion Cardiovascular: No chest pain, tightness or palpitations Abdomen: No pain, nausea, vomiting, diarrhea or constipation Urological: + hematuria, no dysuria, no spasming Musculoskeletal: No joint pain, calf pain, swelling Neurologic: No weakness, numbness/tingling, or balance problems Skin: No rash or itch (Mercedes Rust PA-C) Objective Vital Signs Date Time Temp Pulse Resp B/P (MAP) Pulse Ox O2 Delivery O2 Flow Rate FiO2 08/10/16 11:49 37.2 70 20 130/72 (91) 90 Room Air 08/10/16 11:12 37.0 86 20 93 Room Air 08/10/16 07:59 93 Room Air 08/10/16 07:55 37.0 86 20 162/90 (114) 93 Room Air 08/10/16 07:40 Room Air 08/10/16 03:42 37.2 82 18 152/83 (106) 94 Nasal Cannula 2.0 08/09/16 23:45 Nasal Cannula 2.0 08/09/16 22:55 37.1 81 18 156/81 (106) 97 Nasal Cannula 2.0 08/09/16 22:25 37.5 75 20 147/79 (101) 97 Nasal Cannula 2.0 08/09/16 21:20 36.9 79 18 155/80 (105) 95 Nasal Cannula 2.0 08/09/16 20:20 36.9 75 18 150/69 (96) 91 Nasal Cannula 2.0 08/09/16 19:50 36.9 80 18 151/80 (103) 92 Nasal Cannula 2.0 08/09/16 19:29 94 Nasal Cannula 2.0 08/09/16 19:25 36.8 74 20 161/93 (115) 94 Nasal Cannula 2.0 08/09/16 19:14 72 18 08/09/16 19:14 74 18 95 08/09/16 19:09 73 19 08/09/16 19:09 74 19 155/94 95 08/09/16 19:08 73 19 08/09/16 19:08 74 19 92 08/09/16 19:03 73 28 08/09/16 19:03 73 28 95 08/09/16 19:01 157/97 08/09/16 19:00 36.7 08/09/16 18:58 75 19 08/09/16 18:58 75 19 95 08/09/16 18:57 176/93 08/09/16 18:56 164/119 08/09/16 18:53 75 18 08/09/16 18:53 73 18 93 08/09/16 18:52 77 26 94 08/09/16 18:52 77 26 08/09/16 18:51 146/98 08/09/16 18:47 75 23 94 08/09/16 18:47 76 23 08/09/16 18:46 76 18 08/09/16 18:46 79 18 154/87 95 08/09/16 18:45 172/88 08/09/16 18:41 80 24 189/95 98 08/09/16 18:41 74 24 08/09/16 18:36 74 13 08/09/16 18:36 73 13 179/96 98 08/09/16 18:35 176/92 08/09/16 18:31 74 14 08/09/16 18:31 74 14 178/116 98 08/09/16 18:27 174/103 08/09/16 18:26 37.0 73 16 174/103 97 Mask 10 08/09/16 17:40 36.6 68 16 137/87 97 7.0 08/09/16 17:35 36.7 68 16 133/85 92 08/09/16 17:28 36.7 68 16 133/85 (101) 92 Room Air 08/09/16 15:25 Nasal Cannula 2.0 08/09/16 15:20 36.8 65 16 162/81 (108) 92 Nasal Cannula 2.0 (Mercedes Rust PA-C) Physical Exam Notes: General Appearance: WD/WN, no apparent distress Eyes: PERRL, EOMI ENT: hearing grossly normal, pharynx normal Neck: supple, no JVD Respiratory/Chest: chest non-tender, lungs clear, no respiratory distress, no accessory muscle use Cardiovascular: regular rate, rhythm, no JVD, + systolic murmur (grade III/, heard best at LSB 5th ICS) Abdomen: normal bowel sounds, non tender, soft, + pertinent finding (+ CVA tenderness over R flank and R lower back) Extremities: non-tender, no pedal edema, no calf tenderness Neurologic/Psychiatric: alert, normal mood/affect, oriented x 3 Skin: + pertinent finding (many seborrheic keratosis overlying entire body, concentrated on back, chest and head. ) (Mercedes Rust PA-C) Laboratory Results Last 24 Hours Test 08/10/16 06:31 White Blood Count 11.95 K/uL Red Blood Count 5.21 M/uL Hemoglobin 16.3 g/dL Hematocrit 49.7 % Mean Corpuscular Volume 95.4 fL Mean Corpuscular Hemoglobin 31.3 pg Mean Corpuscular Hemoglobin Concent 32.8 g/dl Platelet Count 36 K/uL Neutrophils (%) (Auto) 69.6 % Lymphocytes (%) (Auto) 17.8 % Monocytes (%) (Auto) 9.9 % Eosinophils (%) (Auto) 2.3 % Basophils (%) (Auto) 0.3 % Neutrophils # (Auto) 8.33 K/uL Lymphocytes # (Auto) 2.13 K/uL Monocytes # (Auto) 1.18 K/uL Eosinophils # (Auto) 0.27 K/uL Basophils # (Auto) 0.03 K/uL RDW Standard Deviation 49.4 fL RDW Coefficient of Variation 14.1 % Immature Granulocyte % (Auto) 0.1 % Immature Granulocyte # (Auto) 0.01 K/uL Platelet Estimate DECREASED Large Platelets 1+ [place] Bodies 1+ (Mercedes Rust PA-C) Assessment and Plan 80 yo M with PMHx of coronary artery disease, aortic stenosis, hypertension, status post bilateral knee replacement, ITP status post splenectomy presented as a direct admit from [facility] with complaints of right-sided flank pain. UA positive for 3+ blood and CT abdomen and pelvis confirmatory for right-sided hydronephrosis with hydroureter and right-sided ureteral calculus Proximal right-sided ureteral calculus with hydronephrosis: - Confirmed on CT: Ureteral calculus 0.6x 0.4x 0.5 - IVFs off - Urology consulted: stent placement by Dr. Elkins 08/09 - Repeat KUB: IMPRESSION: 1. No change in the 6 mm mid right ureteral stone. 2. Stable left-sided nephrolithiasis. - Cr. remains stable at 0.72, WBC is 9.55 and trending downward - Ceftriaxone on preoperatively for stent placement as urine culture was cancelled due to clean UA. (day 2) - Will continue on Cipro x 5 more days at time of discharge. - Pain control with morphine and toradol, will send home with percocet if needed - Flomax 0.4 mg HS -PT received platelet transfusion intraoperatively with stent placement on 08/09 , today plt=36 today, will trend labs, he does not follow with heme/onc as an outpt, his family doctor follows this. 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 (Mercedes Rust PA-C) GARRICK Physician Supervision Note: I interviewed and examined the patient. Discussed with Lyubov Rust PAC and agree with findings and plan as documented in the note. Any exceptions or clarifications are listed here: None pt with chronic thrombocytopenia, did have splenectomy in distant past, does have renal colic and stone did augment low platelet count during procedure 08/09, now still low but no significant bleeding, does have some light hematuria vitals stable cover antibiotics, urology placed stent 08/09, will have home on cipro and pyridium as per urology recommendation Documented By: Jorge Choi (oJrge Choi M.D.)
[2016-08-10] MEDS ORDERED: OXYC-57 PO (14:00)
--- NOTE | 2016-08-10 14:14 | Discharge Summary ---
Discharge Summary Date of Service Aug 10, 2016. (Mercedes Rust PA-C) Discharge Summary Admission Date: Aug 08, 2016 at 05:01 Discharge Date: Aug 10, 2016 Discharge Disposition: Home Principal Diagnosis: Proximal right-sided ureteral calculus with hydronephrosis Problems/Secondary Diagnoses: Coronary artery disease, aortic stenosis, hypertension, status post bilateral knee replacement, ITP status post splenectomy Immunizations: Have You Had Influenza Vaccine: Yes History of Tetanus Vaccine?: Yes History of Pneumococcal: HAD REACTION TO VACCINE History of Hepatitis B Vaccine: No Procedures: R ureteral stent placement: 08/09/[address] Severo MUÑOZ HISTORY: right ureteral stone COMPARISON: Outside hospital abdomen and pelvis CT 08/07/2016. FINDINGS: The bowel gas pattern is unremarkable. There are no dilated loops of small bowel to suggest an obstruction. Stable round calcification within the left upper quadrant. Surgical clips within the right upper quadrant from prior cholecystectomy. There is a 5 mm stone within the lower pole of the left kidney. No right renal calculi. No significant change in position of the 6 mm stone within the mid right ureter. This is adjacent to the right L4 transverse process. Calcifications in the deep pelvis are consistent with phleboliths. No pneumoperitoneum or pneumatosis. IMPRESSION: 1. No change in the 6 mm mid right ureteral stone. 2. Stable left-sided nephrolithiasis. Electronically signed by: Toan Escudero M.D. 08/09/2016 8:09 AM Dictated Date/Time: 08/09/2016 8:07 AM The status of this report is Signed. Retrograde RETROGRADE INCLUDES KUB CLINICAL HISTORY: RIGHT STENT AND LASER laser lithotripsy TECHNIQUE: Image intensifier COMPARISON STUDY: None FINDINGS: Findings of a placement of a right ureteral stent. Images were used for intraoperative surgical planning purposes IMPRESSION: Image intensifier usage for a right ureteral stent/lithotripsy intraoperative purposes Electronically signed by: Satnam Ibarra M.D. 08/09/2016 6:41 PM Dictated Date/Time: 08/09/2016 6:40 PM The status of this report is Signed. CHEST 2 VIEWS ROUTINE CLINICAL HISTORY: Preoperative evaluation. COMPARISON STUDY: Chest radiograph November 18, 2016. FINDINGS: There is no pneumothorax. No pleural effusion is identified. Diffuse interstitial thickening is noted with Chilo B lines. The heart is moderately enlarged. There is no consolidation to suggest pneumonia. There is a 1 cm nodular opacity within left mid to upper lung. IMPRESSION: 1. Moderate interstitial pulmonary edema. 2. Moderate cardiomegaly. 3. 1 cm nodular opacity within the left mid to upper lung. This is probably artifactual and may represent a pulmonary vessel. However, PA and shallow obliques radiographs of the chest in one month are recommended to exclude a pulmonary nodule. Electronically signed by: Simon Woods M.D. 08/09/2016 10:43 AM Dictated Date/Time: 08/09/2016 10:38 AM The status of this report is Signed. Consultations: Urology (Mercedes Rust, MANNY) Medication Reconciliation New Medications: Ciprofloxacin Hcl (Cipro) 500 Mg Tab 1 TAB PO BID for 5 Days, #10 TAB Ondasetron Odt (Zofran Odt) 4 Mg Tab 4 MG SL Q6H for Nausea for 15 Days, #60 TAB Oxycodone/Acetaminophen 5MG/325MG (Percocet 5MG/325MG) Tab 1 TABLET PO Q4H PRN for Pain for 7 Days, #28 TAB Ongoing Treatment Phenazopyridine Hcl (Pyridium) 200 Mg Tab 1 TAB PO TID for 3 Days, #9 TAB Tamsulosin HCl (Tamsulosin HCl) 0.4 Mg Cap 0.4 MG PO HS for 14 Days, #14 CAP Continued Medications: Furosemide (Lasix) 80 Mg Tab 1 TAB PO DAILY for 30 Days, #30 TAB 5 Refills Isosorbide Mononitrate Ext Rel (Imdur Ext Rel) 120 Mg Ertab 120 MG PO DAILY, TAB Metoprolol Tartrate (Lopressor) (Lopressor) 50 Mg Tab 1 TAB PO BID for 90 Days, #180 TAB 1 Refill Potassium Chloride (Micro-K Ext Rel) 10 Meq Capcr 10 MEQ PO DAILY, CAP Ranitidine (Zantac) 150 Mg Tab 1 TAB PO BID for 30 Days, #60 TAB 3 Refills Simvastatin (Zocor) 10 Mg Tab 1 TAB PO Q2D for 90 Days, TAB 3 Refills Tramadol (Ultram) 50 Mg Tab 1 TAB PO BID PRN for Pain for 30 Days, #60 TAB Discharge Exam Subjective Pt evaluation today including: conversation w/ patient, physical exam, chart review, lab review, review of studies Pain: Moderate PO Intake: Good The patient was seen and examined this morning. Pt reports his pain is a little better today compared to yesterday, in his right flank/CVA. He is urinating dark red urine, and has missed the urinal twice this morning due to due to feeling like he needs to urinate coming on so quickly. Stent placement went well yesterday. He will anticipate seeing urology early next week to schedule lithotripsy. He denies any other acute complaints. ROS: Constitutional: No fever, sweats or chills Eyes: No diplopia, no worsening or blurred vision ENT: normal hearing, no trouble swallowing Respiratory: No cough, sputum, dyspnea at rest or on exertion Cardiovascular: No chest pain, tightness or palpitations Abdomen: No pain, nausea, vomiting, diarrhea or constipation Urological: + hematuria, no dysuria, no spasming Musculoskeletal: No joint pain, calf pain, swelling Neurologic: No weakness, numbness/tingling, or balance problems Skin: No rash or itch Objective General Appearance: WD/WN, no apparent distress Eyes: PERRL, EOMI ENT: hearing grossly normal, pharynx normal Neck: supple, no JVD Respiratory/Chest: chest non-tender, lungs clear, no respiratory distress, no accessory muscle use Cardiovascular: regular rate, rhythm, no JVD, + systolic murmur (grade III/, heard best at LSB 5th ICS) Abdomen: normal bowel sounds, non tender, soft, + pertinent finding (+ CVA tenderness over R flank and R lower back) Extremities: non-tender, no pedal edema, no calf tenderness Neurologic/Psychiatric: alert, normal mood/affect, oriented x 3 Skin: + pertinent finding (many seborrheic keratosis overlying entire body, concentrated on back, chest and head. ) (Mercedes Rust PA-C) Hospital Course H&P per Kathy Lake MD., resident History of Present Illness Source: patient 80-year-old male with a past medical history of coronary artery disease, aortic stenosis, hypertension, status post bilateral knee replacement, ITP status post splenectomy presented as a direct admit from [facility] with complaints of right-sided flank pain. The patient complained of right-sided flank pain which started yesterday afternoon and seemed to get progressively worse. He rates the pain as 7/10. Worse on moving. Denies any nausea or vomiting, diarrhea or constipation. Denies any dysuria, increased frequency, hematuria. Denied any fevers with chills. UA done at outside hospital revealed 3+ blood and CT abdomen and pelvis revealed mild right-sided hydronephrosis with proximal right hydroureter with 0.6 x0.4x 0.5 ureteral calculus . Physical Exam Vital Signs Date Time Temp Pulse Resp B/P (MAP) Pulse Ox O2 Delivery O2 Flow Rate FiO2 08/08/16 04:38 74 136/81 (99) 08/08/16 03:20 Room Air 08/08/16 03:20 36.8 75 16 185/107 95 Room Air General Appearance: WD/WN, + mild distress Head: normocephalic Eyes: normal inspection ENT: normal ENT inspection, hearing grossly normal Neck: supple Respiratory/Chest: chest non-tender, lungs clear, normal breath sounds, no respiratory distress Cardiovascular: regular rate, rhythm, + systolic murmur Abdomen/GI: normal bowel sounds, non tender, soft Back: + right CVA tenderness, + pertinent finding (several Seborrheic keratosis on the back) Extremities/Musculoskelatal: no pedal edema Neurologic/Psych: alert, normal mood/affect, oriented x 3 Skin: normal color Hospital course : 80 yo M with PMHx of coronary artery disease, aortic stenosis, hypertension, status post bilateral knee replacement, ITP status post splenectomy presented as a direct admit from [facility] with complaints of right-sided flank pain. UA positive for 3+ blood and CT abdomen and pelvis confirmatory for right- sided hydronephrosis with hydroureter and right-sided ureteral calculus Proximal right-sided ureteral calculus with hydronephrosis: - Confirmed on CT: Ureteral calculus 0.6x 0.4x 0.5 - IVFs off - Urology consulted: stent placement by Dr. Elkins 08/09 - Repeat KUB: IMPRESSION: 1. No change in the 6 mm mid right ureteral stone. 2. Stable left-sided nephrolithiasis. - Cr. remains stable at 0.72, WBC is 9.55 and trending downward - Ceftriaxone on preoperatively for stent placement as urine culture was cancelled due to clean UA. (day 2) - Will continue on Cipro x 5 more days at time of discharge. - Pain control with morphine and toradol, will send home with percocet if needed - Flomax 0.4 mg HS - PT received platelet transfusion intraoperatively with stent placement on 08/09 , today plt=36 today, will trend labs, he does not follow with heme/onc as an outpt, his family doctor follows this. 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 Total Time Spent: Greater than 30 minutes This includes examination of the patient, discharge planning, medication reconciliation, and communication with other providers. (Mercedes Rust PA-C) please see todays progress note for attending attestation (Jorge Choi M.D.) Discharge Instructions Please refer to the electronic Patient Visit Report (Discharge Instructions) for additional information. (Mercedes Rust PA-C) Follow-Up Follow up with your Primary Care Provider within 1 week. Follow up with Urology within 1.5-2 weeks. (Mercedes Rust PA-C) Additional Copies To MARTÍN MELCHOR
[2016-08-25] MEDS ORDERED: OXYC-57 PO (15:47)
[2016-09-05] MEDS ORDERED: CIPR-255 PO (08:30)
== END 2016-08-10 15:04 | disposition home or self-care (01) | DRG 694 ==
LOC: C.MSN 08-08 03:20 → UNDOADMIN 08-08 03:20 → C.MSN 08-08 05:01
PROVIDERS: ADMIT Hospitalist; ATTEND Hospitalist
PROC: 0T768DZ Dilation of Right Ureter with Intraluminal Device, Via Natural or Artificial Opening Endoscopic (ICD-10-PCS; principal; 2016-08-09 17:30)
DX: N13.2 Hydronephrosis with renal and ureteral calculous obstruction (principal); D69.3 Immune thrombocytopenic purpura; I11.0 Hypertensive heart disease with heart failure; I50.9 Heart failure, unspecified; I25.10 Atherosclerotic heart disease of native coronary artery without angina pectoris; Z96.653 Presence of artificial knee joint, bilateral; Z90.49 Acquired absence of other specified parts of digestive tract; Z90.81 Acquired absence of spleen

== ENCOUNTER → 2016-09-05 | Day surgery (SDC) | payer BC ==
[2016-08-25 15:27] VITALS: BMI 32.0
[~2016-09-05] VITALS: Ht 177.8 cm; Wt 101.4 kg
[~2016-09-05] MED LIST changes: +ACETAMINOPHEN 1000 MG/100 ML IV IV ONE; +ACETAMINOPHEN IV 100 ML IV SCH; +ATROPINE SULFATE 0.1 MG/ML 5ML SYR IV PRN; +CIPR-255 PO; +CIPROFLOXACIN / D5W 400 MG IV SCH; +CONRAY 30% 150ML BOTTLE ONE; +EpHEDrine SULFATE INJ 50 MG/ML AMP IV PRN; +FENTANYL CITRATE INJ 50 MCG/1 ML 2 ML VIAL ONE; +FLM4 PO; +FURO80TA63 PO; +ISOS120T5 PO; +LACTATED RINGER'S 1000ML 1,000 ML IV SCH; +LIDOCAINE HCL 2% 2 ML VIAL (20MG/ML) ONE; -LISIPOW; +METO50TA16 PO; +MIDAZOLAM HCL 1 MG/ML 2ML VIAL ONE; +ONDANSETRON INJ 2 MG/ML 2 ML VIAL IV PRN; +OXYC-57 PO; +OXYCODONE/ACETAMINOPHEN 5-325 TAB PO PRN; +PHENYLEPHRINE 100MCG/ML 5ML SYR ONE; +POTA10CA28 PO; +PROPOFOL IV EMULSION 10 MG/ML 20 ML VIAL IV ONE; +SIMV10TA2 PO; -TOPROL
[2016-09-05 05:47] VITALS: BP 163/98; PULSE 77; TEMP 36.7; O2SAT 94; Ht 177.8 cm; Wt 101.4 kg
[2016-09-05 06:43] LABS: HEMATOCRIT 54.6 % (42-52); MEAN CELL VOLUME 93.7 fL (80-100); MEAN CORPUSCULAR HEMOGLOBIN 31.2 pg (25-34); MEAN CORPUSCULAR HGB CONC 33.3 g/dl (32-36); PLATELET COUNT 36 K/uL (130-400); RED BLOOD COUNT 5.83 M/uL (4.7-6.1); WHITE BLOOD COUNT 9.99 K/uL (4.8-10.8)
--- NOTE | 2016-09-05 07:02 | History & Physical Bridge Note ---
H&P Re-Evaluation Bridge Note: I have examined the patient, reviewed the History & Physical and in the interval since the performance of the History & Physical I have noted the following changes of clinical significance: No changes noted
--- NOTE | 2016-09-05 07:17 | Discharge Instructions ---
Discharge Instructions Date of Service Sep 05, 2016. Admission Reason for Admission: Right Stones Discharge Discharge Diagnosis / Problem: R stones s/p uscope, laser litho Discharge Goals Goal(s): Improve function, Improve disease control, Therapeutic intervention Activity Recommendations Activity Limitations: as noted below Lifting Limitations: no more than 25 pounds, gradually increase as tolerated ( x 3 days) Exercise/Sports Limitations: rest today, until after follow-up appointment (x 3 days) May Resume Sexual Activity: after two weeks Shower/Bathe: no limitations Driving or Machine Use: resume 1 day after discharge . Instructions / Follow-Up Instructions / Follow-Up As scheduled in office for stent removal, KUB Xray before visit Discharge Diet Recommended Diet: Regular Diet (good fluid intake) Procedures Procedures Performed: Cysto, R stent exchange, flexible ureteroscopy, laser lithotripsy, stone basketing, RPG Pending Studies Studies pending at discharge: yes List of pending studies: Stone analysis Medical Emergencies . Who to Call and When: Medical Emergencies: If at any time you feel your situation is an emergency, please call 911 immediately. . Non-Emergent Contact Non-Emergency issues call your: Urologist Call Non-Emergent contact if: you have a fever, temperature is above 101, your pain is not controlled, your pain is worsening, your pain is unusual for you, your pain is concerning you, you have any medication questions . . "Provider Documentation" section prepared by Reji Elkins. . VTE Core Measure Inpt VTE Proph given/why not?: SCD's
--- NOTE | 2016-09-05 08:32 | [facility] Post Operative Brief Note ---
Immediate Operative Summary Operative Date Sep 05, 2016. Pre-Operative Diagnosis Right ureteral stone and indwelling stent Post-Operative Diagnosis Same as preoperative diagnosis Procedure(s) Performed Cysto, R stent exchange, flexible ureteroscopy, laser lithotripsy, stone basketing, RPG Surgeon Reji Elkins Carbon Lamp Cleaner Surgeon(s) none Estimated Blood Loss 10cc Findings Midureteral stone fragmented and removed, no ureteral injury, stent in good location Specimens A: Ureteral stone for chemical analysis Drains 6 fr 28 cm R JJ stent Anesthesia GALMA Complication(s) None Disposition Recovery Room / PACU
--- NOTE | 2016-09-05 08:36 | DIAGNOSTIC IMAGING REPORT ---
Retrograde PolyGram RETROGRADE INCLUDES KUB CLINICAL HISTORY: RT LASER laser lithotripsy TECHNIQUE: Image intensifier COMPARISON STUDY: None FINDINGS: Image intensifier was used for intraoperative laser lithotripsy. IMPRESSION: Intraoperative image intensifier for surgical planning Electronically signed by: Satnam Ibarra M.D. 09/05/2016 8:34 AM Dictated Date/Time: 09/05/2016 8:33 AM
--- NOTE | 2016-09-05 08:38 | [facility] Operative Report ---
Operative Report Operative Date Sep 05, 2016. Pre-Operative Diagnosis Right ureteral stone and indwelling stent Post-Operative Diagnosis Same as preoperative diagnosis Procedure(s) Performed Cysto, R stent exchange, flexible ureteroscopy, laser lithotripsy, stone basketing, RPG Surgeon Reji Elkins Orthodontic Laboratory Technician Surgeon(s) none Estimated Blood Loss 10cc Findings Good stent position after case, midureteral stone fragmented and removed, no ureteral injuries noted Specimens A: Ureteral stone for chemical analysis Drains 6 fr 28 cm R JJ stent Anesthesia GALMA Complication(s) None Disposition Recovery Room / PACU Indications R ureteral stone, indwelling stent, history of intractable colic. Description of Procedure Patient was properly identified and brought to the operative suite after identification purposes on the chart. General anesthesia with laryngeal mask was initiated and patient was prepped and draped in the standard fashion for this procedure. Intravenous ciprofloxacin was used for antibiotic coverage and SCDs used for DVT prophylaxis. Full timeout procedure was followed. After the patient was prepped and draped in the dorsal lithotomy position a 22 [place] rigid cystoscope was passed into the bladder under direct visualization. Bladder was surveyed demonstrating mild trabeculation and obstructive and somewhat vascular prostate and no evidence of urethral stricture. Stent was visualized coming out of the right ureteral orifice with minimal encrustation. This was grasped and brought up to the level of the meatus and then cannulated using a sensor tip wire. This was advanced level of the right renal pelvis and kept until the end of the case as a safety wire. An Amplatz super stiff working wire was then advanced through the ureter followed by a 12/14 45 cm ureteral access sheath. A eyebrow to flex ureteroscope was advanced up to the kidney and complete pyeloscopy was performed. This demonstrated no evidence of stones within the kidney or collecting system and some small Alvaro's plaques. Contrast passed through the scope to ensure that all calyces of been accessed. At the level of the mid pole a small stenotic infundibulum was appreciated but this was easily able to be bypassed using the flexible ureteroscope and evaluated with no evidence of stone. Exit ureteroscopy with removal of the sheath was performed and at the level of the mid ureter in the vicinity of the vessels the patient's stone was encountered within the ureter. No evidence of tears ureteral injury in the proximal ureter had been appreciated. A 200 laser fiber was passed and the stone was fragmented into smaller pieces which were removed using an NGage basket. After this was complete ureteroscopy was repeated and no evidence of ureteral injury or residual stone was noted. Complete X ureteroscopy was completed demonstrating no difficulties injuries or lesions within the distal ureter. Cystoscope was backloaded over the safety wire and a 6 Mal[place]ian 28 cm double-J ureteral stent was advanced with redundant coil within the bladder and sufficient stent present within the confines of the renal pelvis. Due to some mild oozing from the prostate gland after the cystoscope was removed and a 20 [place] catheter was placed for a short period of tamponade. Clear pink urine was appreciated draining from the catheter. Anesthesia was reversed patient was transferred to the recovery room in stable condition. I attest to the content of the Intraoperative Record and any orders documented therein. Any exceptions are noted below.
[2016-09-05] MEDS: FENTANYL CITRATE INJ 50 MCG/1 ML 2 ML VIAL IV PRN ×3 (09:11→09:21)
[2016-09-05 09:47] VITALS: BP 172/83; PULSE 61; TEMP 36.8; O2SAT 94
[2016-09-05 10:20] VITALS: BP 166/82; PULSE 63; O2SAT 93
[2016-09-05 10:50] VITALS: BP 155/74; PULSE 61; TEMP 36.7; O2SAT 94
--- NOTE | 2016-09-05 11:45 | Anesthesiology Progress Note ---
Anesthesia Post Op Note Date & Time Sep 05, 2016 at 11:45 Vital Signs Pain Intensity: 0 Vital Signs Past 12 Hours Date Time Temp Pulse Resp B/P (MAP) Pulse Ox O2 Delivery O2 Flow Rate FiO2 09/05/16 10:50 36.7 61 18 155/74 94 Nasal Cannula 2 09/05/16 10:20 63 18 166/82 93 Nasal Cannula 2 09/05/16 09:47 36.8 61 18 172/83 94 Nasal Cannula 2 09/05/16 09:40 61 20 164/91 94 Nasal Cannula 2 09/05/16 09:30 36.5 62 19 155/92 93 Nasal Cannula 2 09/05/16 09:20 60 15 179/109 92 Nasal Cannula 2 09/05/16 09:10 59 16 176/100 89 Room Air 09/05/16 09:00 60 10 175/82 91 Room Air 09/05/16 08:50 61 13 173/91 93 Room Air 09/05/16 08:40 62 17 173/92 96 Mask 10 09/05/16 08:30 62 19 132/108 95 Mask 10 09/05/16 08:21 36. 65 12 160/116 94 Mask 10 09/05/16 05:47 36.7 77 18 163/98 (119) 94 Room Air Notes Mental Status: alert / awake / arousable, participated in evaluation Pt Amnestic to Procedure: Yes Nausea / Vomiting: adequately controlled Pain: adequately controlled Airway Patency, RR, SpO2: stable & adequate BP & HR: stable & adequate Hydration State: stable & adequate Anesthetic Complications: no major complications apparent
== END | disposition home or self-care (01) ==
LOC: C.ACU 05:09
PROVIDERS: ATTEND Urology
DX: N20.1 Calculus of ureter (principal); E78.00 Pure hypercholesterolemia, unspecified; I10 Essential (primary) hypertension; I25.2 Old myocardial infarction; Z86.73 Personal history of transient ischemic attack (TIA), and cerebral infarction without residual deficits; Z82.49 Family history of ischemic heart disease and other diseases of the circulatory system; Z80.1 Family history of malignant neoplasm of trachea, bronchus and lung; Z84.1 Family history of disorders of kidney and ureter